=== PATIENT | male | born 1980 | race Caucasian/White ===

== ENCOUNTER 2018-06-10 20:17 | Emergency (ER) | payer MEDICAID ==
[~2018-06-10] VITALS: Ht 177.8 cm; Wt 68.0 kg
--- NOTE | 2018-06-10 20:35 | NUR ---
Patient ambulated with stable gait. Disheveled in appearance. AAOX4. Speech is clear, speaks in complete sentences. No neuro deficits. Patient came for c/o chest pain upon inspiration and when he walks, pain resolves when he is still. Respiratory even and unlabored. No GI/ distress noted. Patient in bed at lowest position, side rails upx2, call light within reach. Fall precautions implemented per protocol.
[2018-06-10] MEDS ORDERED: IV NORMAL SALINE 500 ML BAG IV ONE (20:45)
[2018-06-10 20:50] LABS: BASOPHILS % (AUTO) 0.5 % (0.0-2.0); EOSINOPHILS # (AUTO) 0.1 K/uL (0.0-0.7); EOSINOPHILS % (AUTO) 0.6 % (0.0-7.0); HEMATOCRIT 37.3 % (36.7-47.1); HEMOGLOBIN 12.5 g/dL (12.5-16.3); LYMPHOCYTES # (AUTO) 1.9 K/uL (20.0-40.0); LYMPHOCYTES % (AUTO) 17.7 % (20.5-51.5); MEAN CORPUSCULAR HEMOGLOBIN 29.2 uug (23.8-33.4); MEAN CORPUSCULAR HGB CONC 33 g/dL (32.5-36.3); MEAN CORPUSCULAR VOLUME 87.5 fL (73.0-96.2); MONOCYTES # (AUTO) 0.9 K/uL (2.0-10.0); MONOCYTES % (AUTO) 8.3 % (0.0-11.0); NEUTROPHILS # (AUTO) 7.7 K/uL (1.8-8.9); NEUTROPHILS % (AUTO) 72.9 % (38.5-71.5); PLATELET COUNT (AUTO) 349 K/uL (152-348); RED BLOOD CELL COUNT(AUTO) 4.27 MIL/uL (4.06-5.63); WHITE BLOOD COUNT (AUTO) 10.5 K/uL (3.6-10.2)
[2018-06-10 20:58] LABS: POTASSIUM 4.1 mmol/L (3.5-5.1)
[2018-06-10 21:08] LABS: ETHANOL < 3 MG/DL (0-0)
[2018-06-10] MEDS ORDERED: IV NORMAL SALINE 1000 ML BAG IV ONE (21:15)
--- NOTE | 2018-06-10 21:19 | NUR ---
Patient in bed resting with eyes closed, iv fluids infusing patent, no signs of infiltration. NAD.
[2018-06-10 21:21] LABS: BILIRUBIN,DIRECT 0.1 mg/dL (0.0-0.2); BILIRUBIN,TOTAL 0.2 mg/dL (0.2-1.0); TOTAL PROTEIN, SERUM 8.1 g/dL (6.4-8.2)
[2018-06-10 21:22] LABS: ACETAMINOPHEN < 2.0 ug/mL (10-30)
--- NOTE | 2018-06-10 21:58 | NUR ---
Pt. given warm blankete for comfort, all pt. needs met, NAD
--- NOTE | 2018-06-10 22:55 | NUR ---
Patient given written and verbal discharge instructions. Patient verbalizes understanding of instructions. Patient is ambulatory with steady gait. Refuses offer of [facility] placement. Patient given list of available shelters in surrounding area. Pt. d/c per MD order, d/c papers signed, homeless packet given and signed, all belongings w/ pt., IV/ID band removed, ambulated off unit w/ asteady gait, NAD,
[2018-06-10 22:56] VITALS: BP 108/73
== END 2018-06-10 22:57 | disposition home or self-care (01) ==
LOC: ER 20:17
DX: R07.89 Other chest pain (principal); R45.850 Homicidal ideations; F17.200 Nicotine dependence, unspecified, uncomplicated; F12.10 Cannabis abuse, uncomplicated; Z90.49 Acquired absence of other specified parts of digestive tract; Z59.0 Homelessness
CPT/HCPCS: 36415; 71045; 80048; 80076; 83880; 84484; 85025; 85730; 93005 ×2; 99284; G0480 ×2; G0481; 70030-TC; A4663; J7030; J7040